=== PATIENT | female | born 1960 | race African-American/Black ===

== ENCOUNTER → 2017-03-04 | Outpatient (CLI) | payer OTHER | LOC: WI 09:09 | PROVIDERS: ATTEND Physician Assistant | DX: Z12.31 Encounter for screening mammogram for malignant neoplasm of breast (principal) | CPT/HCPCS: 77067; G0202 ==

== ENCOUNTER → 2017-07-25 | Outpatient (CLI) | payer OTHER ==
--- NOTE | 2017-07-25 09:52 | WOMENS IMAGING REPORT ---
EXAM DESCRIPTION: TRANSVAGINAL ULTRASOUND COMPLETED DATE/TIME: 07/25/2017 9:03 am REASON FOR STUDY: RIGHT LOWER QUADRANT PAIN R10.31 RIGHT LOWER QUADRANT PAIN COMPARISON: MRI pelvis 08/02/2008 Pelvic ultrasound 06/17/2008, 08/02/2011 TECHNIQUE: Dynamic and static grayscale images acquired of the pelvis via transvaginal approach and recorded on PACS. Additional selected color Doppler and spectral images recorded. LIMITATIONS: None. FINDINGS: UTERUS: Uterus is 8.5 x 7 x 5.3 cm in size, smaller than on prior ultrasound 08/02/2011. T here are peripherally calcified shadowing fibroids, the largest is 3.7 cm in size, next largest 3.4 c m in size, next largest 2 cm in size. These are overall, slightly smaller than on ultrasound from 20 11. ENDOMETRIAL STRIPE: Partially shadowed by IV fibroids. A discrete endometrial measurement is difficu lt to obtain. CERVIX: No nabothian cysts. RIGHT OVARY: Not visualized due to adnexal bowel gas. RIGHT OVARY DOPPLER: Not performed LEFT OVARY: Not visualized due to adnexal bowel gas LEFT OVARY DOPPLER: Not performed FREE FLUID: None noted. OTHER: No other significant finding. IMPRESSION: Decrease in size of the uterus and the uterine fibroids compared to previous ultrasound 07/02/2011 Because of the shadowing fibroids, visualization of the endometrial stripe was nondiagnostic. Ovaries not visualized due to adnexal bowel gas TECHNICAL DOCUMENTATION: JOB ID: [id number] [employer]- All Rights Reserved
== END ==
LOC: WI 08:04
PROVIDERS: ATTEND Physician Assistant
DX: R10.31 Right lower quadrant pain (principal); D25.9 Leiomyoma of uterus, unspecified
CPT/HCPCS: 76830

== ENCOUNTER → 2017-11-05 | Day surgery (SDC) | payer OTHER ==
--- NOTE | 2017-11-05 15:03 | RADIOLOGY REPORT (SQ) ---
EXAM DESCRIPTION: ARTHRO SHOULDER; ARTHRO SHOULDER INJECTION COMPLETED DATE/TIME: 11/05/2017 1:48 pm REASON FOR STUDY: M25.512 PAIN IN LEFT SHOULDER M25.512 PAIN IN LEFT SHOULDER COMPARISON: None. FLUOROSCOPY TIME: 0.6 seconds 1 digital left shoulder image saved to PACS. LIMITATIONS: None. PROCEDURE: Procedure, risks, benefits and alternatives explained to patient who then gave written co nsent. The left posterior shoulder was marked and a time out was called for correct procedure verific ation. Posterior entry site marked using fluoroscopic guidance. Shoulder prepped and draped using s terile technique. Local anesthesia achieved using 9 mL of 1% lidocaine injection. 22 gauge spinal n eedle introduced into the joint space under direct fluoroscopic visualization. Non-ionic contrast ins tilled to confirm intra-articular position. Dilute gadolinium solution then injected. Needle removed and entry site covered with sterile bandage. No immediate complications noted. TECHNIQUE: Digital images acquired during fluoroscopy and stored on PACS. Patient immediately take n to the MR suite for additional imaging. INJECTION LOCATION: Left posterior glenohumeral joint CONTRAST TYPE AND AMOUNT: 1 mL of Isovue-300 injected to confirm intra-articular needle placement fol lowed by 8 mL of dilute ProHance gadolinium for MR arthrogram. No immediate complications post proced ure IMPRESSION: SUCCESSFUL NEEDLE PLACEMENT AND INJECTION FOR LEFT SHOULDER MR ARTHROGRAM USING POSTERIO R APPROACH. COMMENT: Quality ID [id number]: Final reports for procedures using fluoroscopy that document radiation exp osure indices, or exposure time and number of fluorographic images (if radiation exposure indices are not available) TECHNICAL DOCUMENTATION: JOB ID: [id number] [employer]- All Rights Reserved
--- NOTE | 2017-11-05 15:22 | RADIOLOGY REPORT (SQ) ---
EXAM DESCRIPTION: MRI LT UPPER JOINT WITH COMPLETED DATE/TIME: 11/05/2017 2:32 pm REASON FOR STUDY: M25.512 PAIN IN LEFT SHOULDER M25.512 PAIN IN LEFT SHOULDER COMPARISON: Arthrogram same day TECHNIQUE: Left shoulder images acquired and stored on PACS. Oblique coronal, oblique sagittal, and axial imaging to include fat sensitive sequences as T1, water sensitive sequences as FST2/STIR, and c ontrast sensitive sequences as FST1. LIMITATIONS: None. FINDINGS: JOINT DISTENTION: Adequate distention for interpretation. Small amount of gadolinium seen in the subacromial/subdeltoid bursa related to a full-thickness anterior supraspinatus tendon tear BONE MARROW AND CORTEX: Normal. No significant osteophytes. No edema or defects. AC JOINT: Type II acromion. Bulky acromioclavicular joint hypertrophy with mild narrowing of the suba cromial space, best shown on sagittal images 9 through 14 and coronal image 8. GLENOHUMERAL JOINT: No subluxation or dislocation. No focal chondral defects or reactive bone changes . ROTATOR CUFF: There is a full-thickness tear along the anterior supraspinatus tendon, best shown on a xial image 9, coronal image 7, and sagittal images 13 through 15. Remainder of the supraspinatus is thin with high signal along its undersurface from tendinopathy. There is tendinopathy along the unde rsurface of the infraspinatus tendon without discrete full-thickness tear. Thinning of the distal gabriel bscapularis tendon is present without full-thickness tear. LABRUM AND BICEPS LABRAL COMPLEX: Intra-articular long head biceps tendon and anterior labrum are int act. There is a small posterosuperior labral tear without paralabral cyst on axial images 7-10. INFERIOR LABRAL COMPLEX: Bony glenoid and labrum intact. IGHL intact without thickening or tear. No p aralabral cysts. ADJACENT SOFT TISSUES: No masses or nodes. OTHER: No other significant finding. IMPRESSION: Acromioclavicular hypertrophy Full-thickness anterior supraspinatus tendon tear Tendinopathy in the remainder of the supraspinatus and infraspinatus, tendinopathy distal subscapular is Small tear posterosuperior labrum without paralabral cyst TECHNICAL DOCUMENTATION: JOB ID: [id number] [employer]- All Rights Reserved
== END ==
LOC: RAD 13:02
PROVIDERS: ATTEND Orthopaedic Surgery Sports Medicine
PROC: BP09ZZZ Plain Radiography of Left Shoulder (ICD-10-PCS; principal; 2017-11-05)
DX: M25.512 Pain in left shoulder (principal)
CPT/HCPCS: 73222; 73040; 23350; A9576

== ENCOUNTER → 2018-06-29 | Outpatient (CLI) | payer OTHER ==
--- NOTE | 2018-06-29 14:27 | WOMENS IMAGING REPORT ---
EXAM DESCRIPTION: BILAT SCREENING MAMMO W/CAD COMPLETED DATE/TIME: 06/29/2018 11:58 am REASON FOR STUDY: BILATERAL SCREENING MAMMO/Z12.31 Z12.31 ENCNTR SCREEN MAMMOGRAM FOR MALIGNANT YADIRA PLASM OF BANDAR COMPARISON: 2010- TECHNIQUE: Standard craniocaudal and mediolateral oblique views of each breast recorded using Baiyaxu[employer] l acquisition. LIMITATIONS: None. FINDINGS: No masses, calcifications or architectural distortion. No areas of suspicion. Read with the assistance of CAD. .[facility] - R2 Cenova Version 1.3 .[facility] - R2 Cenova Version 1.3 .[facility] - R2 Cenova Version 2.4 .[facility] - R2 Cenova Version 2.4 .[facility] - R2 [employer] Version 9.2 IMPRESSION: NORMAL MAMMOGRAM. BIRADS 1. BREAST DENSITY: b. There are scattered areas of fibroglandular density. BIRAD: 1 NEGATIVE RECOMMENDATION: ROUTINE SCREENING COMMENT: The patient has been notified of the results by letter per SA requirements. Additional no tification policies are in place for contacting patient with suspicious or incomplete findings. Quality ID #225: The [employer] recommends an annual screening mammogram for women aged 40 years or over. This facility utilizes a reminder system to ensure that all patients receive reminder letters, and/or direct phone calls for appointments. This includes reminders for routine scr eening mammograms, diagnostic mammograms, or other Breast Imaging Interventions when appropriate. Th is patient will be placed in the appropriate reminder system. The [employer] (ACR) has developed recommendations for screening MRI of the breast s in certain patient populations, to be used in conjunction with mammography. Breast MRI surveillanc e may be appropriate for women with more than 20% lifetime risk of developing breast cancer as deter mined by genetic testing, significant family history of the disease, or history of mantle radiation f or Hodgkins Disease. ACR Practice Guidelines 2008. TECHNICAL DOCUMENTATION: FINDING NUMBER: (1) ASSESSMENT: (1) JOB ID: [id number] [employer]- All Rights Reserved Reading location - IP/workstation name: [facility]
== END ==
LOC: WI 11:10
PROVIDERS: ATTEND Physician Assistant
DX: Z12.31 Encounter for screening mammogram for malignant neoplasm of breast (principal)
CPT/HCPCS: 77067

== ENCOUNTER 2019-08-15 18:00 | Emergency (ER) | payer OTHER ==
--- NOTE | 2019-08-15 18:45 | ER Document Report ---
HPI - HPI Time Seen by Provider: 08/15/19 18:27 Notes: Patient is a 59-year-old female no significant past medical history who presents complaining of toe pain to her right second toe status post stubbing it on cement today. Patient states that she saw go a different direction, but it straightened out. She has had pain since then. She has a tingling sensation associated as well. She is able to ambulate, but is limping. No other concerns or complaints. She is not on any blood thinning medications. Denies any headache, fever, neck pain, URI, sore throat, chest pain, palpitations, syncope, cough, shortness of breath, wheeze, dyspnea, abdominal pain, nausea/vomiting/diarrhea, urinary retention, dysuria, hematuria, or rash. - ROS Systems Reviewed and Negative: Yes All other systems reviewed and negative Past Medical History - Social History Smoking Status: Never Smoker Family History: Reviewed & Not Pertinent Vertical Provider Document - CONSTITUTIONAL Agree With Documented VS: Yes Notes: PHYSICAL EXAMINATION: GENERAL: Well-appearing, well-nourished and in no acute distress. LUNGS: Breath sounds clear to auscultation bilaterally and equal. No wheezes rales or rhonchi. HEART: Regular rate and rhythm without murmurs, rubs, gallops. Musculoskeletal: Rt foot/ankle: + mild swelling and ecchymosis 2nd toe. LROM to passive/active. Strength 4+/5 due to pain. N/V intact distal. + tenderness to the 2nd toe to palp. No other bony tenderness of the foot/ankle. Achilles intact. Lis Franc maneuver neg. Extremities: No cyanosis, clubbing, or edema b/l. Peripheral pulses 2+. Capillary refill less than 3 seconds. NEUROLOGICAL: Normal speech, limping gait. Normal sensory, motor exams PSYCH: Normal mood, normal affect. SKIN: Warm, Dry, normal turgor, no rashes or lesions noted. see above - INFECTION CONTROL TRAVEL OUTSIDE OF THE [place] IN LAST 30 DAYS: No Course - Re-evaluation Re-evalutation: 08/15/19 19:[address] Colunga who agrees with dispo/plan: Patient is an afebrile, well-hydrated, 59-year-old female who presents to the ED with a fracture to the proximal phalange 2nd toe rt foot. Vitals are acceptable without any significant tachycardia, tachypnea, or hypoxia. PE is otherwise unremarkable for any neurovascular compromise, obvious tendon/ligament rupture, open fracture, septic joint. See XR result. Splint applied today and crutches provided. Tylenol given PO. Patient is nontoxic-appearing. No other labs or imaging warranted at this time based on H&P. Conservative measures otherwise for symptoms. Recheck with your PCM in 3-5 days. Call orthopedics tomorrow to schedule an appointment for further evaluation and management. Return to the ED with any worsening/concerning symptoms otherwise as reviewed in discharge. Patient is in agreement. Discharge - Discharge Clinical Impression: Toe fracture, right Qualifiers: Encounter type: initial encounter Toe: lesser toe Fracture type: closed Phalanx: proximal Fracture alignment: displaced Qualified Code(s): S92.511A - Displaced fracture of proximal phalanx of right lesser toe(s), initial encounter for closed fracture Condition: Stable Disposition: HOME, SELF-CARE Instructions: Splint Precautions ([facility]) Additional Instructions: Rest, Ice, Compression, Elevation Use crutches/splint as directed Tylenol/ibuprofen as needed F/u with your PCP in 3-5 days for a recheck Call orthopedics tomorrow to schedule an appointment for further evaluation and management Return to the ED with any worsening symptoms and/or development of fever, headache, chest pain, palpitations, syncope, shortness of breath, trouble breathing, abdominal pain, n/v/d, muscle weakness/paralysis, numbness/tingling, swelling, redness, or other worsening symptoms that are concerning to you. Prescriptions: Hydrocodone/Acetaminophen [[place] 5-325 mg Tablet] 1 tab PO TID #10 tablet Forms: Elevated Blood Pressure Referrals: ANTOINETTE MENDOSA PA [NO LOCAL MD] - Follow up as needed APURVA BOSWELL JR, DO [ACTIVE PROVISIONAL STAFF] - Follow up in 3-5 days
--- NOTE | 2019-08-15 19:01 | RADIOLOGY REPORT (SQ) ---
EXAM DESCRIPTION: TOE RIGHT COMPLETED DATE/TIME: 08/15/2019 6:50 pm REASON FOR STUDY: 3rd toe pain, poss dislocation COMPARISON: None. NUMBER OF VIEWS: Three views. TECHNIQUE: AP, lateral, and oblique images acquired of the right second toe. LIMITATIONS: None. FINDINGS: MINERALIZATION: Normal. BONES: Mildly comminuted 2nd toe proximal phalanx mid to distal shaft fracture with lateral and dorsa l angulation of the distal fracture fragment. JOINTS: No effusions. SOFT TISSUES: No soft tissue swelling. No foreign body. OTHER: No other significant finding. IMPRESSION: Mildly comminuted 2nd toe proximal phalanx mid to distal shaft fracture with lateral and dorsal angulation of the distal fracture fragment. COMMENT: SITE OF TRAUMA/COMPLAINT MARKED/STAMP COMPLETED: YES. TECHNICAL DOCUMENTATION: JOB ID: [id number] [employer]- All Rights Reserved Reading location - IP/workstation name: [email or web address]
[2019-08-15] MEDS ORDERED: ACETAMINOPHEN 325 MG TABLET PO ONE (19:02)
[2019-08-15 19:20] VITALS: BP 129/74
== END 2019-08-15 19:15 | disposition home or self-care (01) ==
LOC: ER 18:00
DX: S92.511A Displaced fracture of proximal phalanx of right lesser toe(s), initial encounter for closed fracture (principal); M79.674 Pain in right toe(s); R20.2 Paresthesia of skin; X58.XXXA Exposure to other specified factors, initial encounter
CPT/HCPCS: 99283

== ENCOUNTER → 2019-12-02 | Outpatient (CLI) | payer OTHER ==
--- NOTE | 2019-12-02 09:14 | WOMENS IMAGING REPORT ---
EXAM DESCRIPTION: BILAT SCREENING MAMMO W/CAD COMPLETED DATE/TIME: 12/02/2019 7:49 am REASON FOR STUDY: Z12.31 ENCOUNTER FOR SCREENING MAMMOGRAM FOR MALIGNANT NEOPLASM OF BREAST Z12.31 ENCNTR SCREEN MAMMOGRAM FOR MALIGNANT NEOPLASM OF BANDAR COMPARISON: Multiple since 2010 EXAM PARAMETERS: Standard craniocaudal and mediolateral oblique views of each breast recorded using digital acquisition. Read with the assistance of CAD. .[facility] - [employer] Version 9.2 LIMITATIONS: None. FINDINGS: No suspicious masses, suspicious calcifications or architectural distortion. No areas of c oncern. IMPRESSION: Negative MAMMOGRAM. BIRADS 1 BREAST DENSITY: b. There are scattered areas of fibroglandular density. BIRAD: ASSESSMENT: 1 NEGATIVE RECOMMENDATION: ROUTINE SCREENING Please continue yearly bilateral screening mammography/tomosynthesis in November 2020 COMMENT: The patient has been notified of the results by letter per SA requirements. Additional no tification policies are in place for contacting patient with suspicious or incomplete findings. Quality ID #225: The [employer] recommends an annual screening mammogram for women aged 40 years or over. This facility utilizes a reminder system to ensure that all patients receive reminder letters, and/or direct phone calls for appointments. This includes reminders for routine scr eening mammograms, diagnostic mammograms, or other Breast Imaging Interventions when appropriate. Th is patient will be placed in the appropriate reminder system. TECHNICAL DOCUMENTATION: FINDING NUMBER: (1) ASSESSMENT: (1) JOB ID: [id number] [employer]- All Rights Reserved Reading location - IP/workstation name: [employer]-[facility]
== END ==
LOC: WI 07:24
PROVIDERS: ATTEND Physician Assistant
DX: Z12.31 Encounter for screening mammogram for malignant neoplasm of breast (principal)
CPT/HCPCS: 77067